=== PATIENT | female | born 1980 | race Caucasian/White ===

== ENCOUNTER 2017-01-14 14:34 | Emergency (ER) | payer OTHER ==
[2017-01-14 15:09] LABS: Hematocrit 41.1 % (37.0-47.0); Hemoglobin 14.4 gm/dL (12.5-16.0); Mean Cell Volume 82.4 fl (78-100); Mean Corpuscular Hemoglobin 28.9 pg (27-31); Mean Platelet Volume 9.6 fl (6.0-9.5); Neutrophil # 8.6 K/mm3 (1.3-6.0); Neutrophil % 72.9 % (42-75.0); Platelet Count 254 K/mm3 (150-450); Red Blood Count 4.99 M/mm3 (4.2-5.4); Red Cell Distribution Width 13.2 % (11.5-14.0); White Blood Count 11.7 K/mm3 (4.0-10.5)
[2017-01-14 15:29] LABS: ALT 48 U/L (19-67); AST 22 U/L (0-48); Albumin * 3.7 gm/dl (3.4-5.0); Alkaline Phosphatase * 82 U/L (50-170); Amylase * 31 U/L (25-115); BUN/Creatinine Ratio 15.9 (9.0-21.6); Bilirubin, Total 0.3 mg/dL (0.0-1.1); Blood Urea Nitrogen 11 mg/dL (3-23); Ca. Corrected For Albumin 9.4 mg/dL (8.4-10.2); Calcium * 9.5 mg/dL (7.9-10.9); Carbon Dioxide 25.5 mmol/L (24-32.6); Chloride 105 mmol/L (97-106); Glucose * 114 mg/dL (70-110); Lipase 105 U/L (73-393); Potassium 3.5 mmol/L (3.4-4.6); Sodium 139 mmol/L (132-142); Troponin I Less than 0.017 ng/ml (0.00-0.10)
[2017-01-14 15:38] LABS: Urine Bilirubin Negative (NEGATIVE); Urine Blood Negative /ul (NEGATIVE); Urine Ketone Negative (NEGATIVE); Urine Nitrite Negative (NEGATIVE); Urine Protein Negative (NEGATIVE); Urine Urobilinogen Normal (NORMAL)
--- NOTE | 2017-01-14 15:44 | ERNOTE ---
Abdominal HPI - General Chief Complaint: Abdominal Pain Time Seen by Provider: 01/14/17 14:55 Source: patient Exam Limitations: no limitations - Immun/Allergies/Home Medications Immunizatons: IMMUNIZATION HX Immunizations Up to Date Yes History of Influenza Vaccine No Hx Pneumococcal Vaccination No Allergies/Adverse Reactions: Allergies peanut Allergy (Verified 01/14/17 14:48) Anaphylaxis shellfish derived Allergy (Verified 01/14/17 14:48) Anaphylaxis Home Medications: HOME MEDICATIONS Losartan/Hydrochlorothiazide [Hyzaar 50-12.5 Tablet] 1 each PO DAILY 05/09/15 [ Last Taken Unknown] Metoprolol Succinate [Toprol Xl] 50 mg PO DAILY #30 tab 05/09/15 [Last Taken Unknown] Dicyclomine HCl [Bentyl] 20 mg PO TID #30 tablet 01/14/17 [Last Taken Unknown] Famotidine [Pepcid] 20 mg PO BID #30 tab 01/14/17 [Last Taken Unknown] - History of Present Illness Narrative: Patient presents with pain in the left lateral chest as well as the left upper quadrant of the abdomen. She complains of shortness of breath and feels as though her heart is racing. Onset of symptoms was approximately 2-1/2 weeks ago however it appears to be getting worse over the last few days. Timing: constant, getting worse Quality: moderate Activities at Onset: none Modifying Factors - (Worsens): Present: exercise Associated Symptoms: Present: shortness of breath Prior Abdominal Problems: Present: none Prior Treatment: Present: recently seen, treated by physician Review of Systems - Review of Systems Constitutional: Present: See HPI EYE: Present: no symptoms reported ENT: Present: no symptoms reported Respiratory: Present: shortness of breath, other - left lateral inferior chest wall pain Cardiology: Present: no symptoms reported Gastrointestinal/Abdominal: Present: no symptoms reported Genitourinary: Present: no symptoms reported Musculoskeletal: Present: no symptoms reported Skin: Present: no symptoms reported Neurological: Present: no symptoms reported Endocrine: Present: no symptoms reported Hematologic/Lymphatic: Present: no symptoms reported Psych: Present: no symptoms reported - Patient's Past Medical History Patient History - Medical: Other Patient History - Cardiac/Respiratory: Hypertension Patient History - Cancer: No Hx of Cancer Patient History - Surgical Procedures: Cholecystectomy, , Tubal Ligation Patient History - Other: None LMP (females 10-50): last week - Social History Living Situations: home Psych History: No pertinent hx - Immunizations Immunizations Up to Date: Yes Hx Pneumococcal Vaccination: No History of Influenza Vaccine: No Physical Exam - Physical Exam General Appearance: Present: wd/wn, alert, moderate distress Eye Exam: Normal inspection: bilateral, PERRL: bilateral Ears, Nose, Throat: Present: normal ENT inspection, H, normal pharynx Neck: Present: normal inspection, nontender Respiratory: Present: normal breath sounds, no accessory muscle use, chest nontender, lungs clear Cardiovascular/Chest: Present: no murmur, normal peripheral pulses, tachycardia Gastrointestinal/Abdominal: Present: normal bowel sounds, nontender, nondistended, soft, no organomegaly Rectal Exam: Present: deferred Back Exam: Present: normal inspection, normal range of motion Extremity Exam: Present: normal inspection, non-tender, no edema, normal range of motion Neurological Exam: Present: alert, oriented, normal mood/affect Skin Exam: Present: normal color, warm/dry Lymphatic Exam: Present: no adenopathy ED Progress - Results and Orders Patient's Lab Results:: I have reviewed the patient's lab results. - Vital Signs Patient's Vital Signs:: I have reviewed the patient's vital signs. Vital Signs: Vital Signs 01/14/17 14:44 Temperature 37.1 C Pulse Rate 123 H Respiratory 16 Rate Blood Pressure 132/26 O2 Sat by Pulse 95 Oximetry - CT/Ultrasound CT/Ultrasound Narrative: CT of the chest abdomen and pelvis were reviewed and discussed with the patient. Unclear etiology for the pain that the patient is having however we will have to consider possible adhesions perhaps some form of colitis or ulcerative colitis although this is not revealed on the CT and possible gastritis. Patient be started on Pepcid and Bentyl and she will discuss the next step and possible gastroenterology referral with Dr. Tran. - Progress/Reassessment Chief Complaint: Abdominal Pain Plan - Plan Plan: Unclear etiology for the pain that the patient is having however we will have to consider possible adhesions perhaps some form of colitis or ulcerative colitis although this is not revealed on the CT and possible gastritis. Patient be started on Pepcid and Bentyl and she will discuss the next step and possible gastroenterology referral with Dr. Tran. Departure - Departure Clinical Impression: Abdominal pain Qualifiers: Abdominal location: left upper quadrant Qualified Code(s): R10.12 - Left upper quadrant pain Disposition: Home self-care Condition: Good Instructions: Adhesions, [id number], Irritable Bowel Syndrome, Adult Referrals: Jered Tran MD [Primary Care Provider] - Prescriptions: Dicyclomine HCl [Bentyl] 20 mg PO TID #30 tablet Famotidine [Pepcid] 20 mg PO BID #30 tab
[2017-01-14] MEDS ORDERED: ORPHENADRINE CITRATE 30 MG/ML VIAL IM ONE (15:47)
[2017-01-14] MEDS ORDERED: KETOROLAC TROMETHAMINE 60 MG/2 ML VIAL IM ONE (15:47)
[2017-01-14 15:55] LABS: Urine Appearance Clear; Urine Bacteria 1+; Urine Color Yellow; Urine RBC None Seen /hpf (0-5); Urine WBC None Seen /hpf (0-5)
[2017-01-14] MEDS ORDERED: DIATRIZOATE MEGLU/DIATRIZO SOD 30 ML BTL ONE (16:16)
[2017-01-14] MEDS ORDERED: NORMAL SALINE 1,000 ML IV ONE (16:56)
[2017-01-14] MEDS ORDERED: ONDANSETRON HCL/PF 2 MG/ML VIAL IV ONE (16:56)
[2017-01-14] MEDS ORDERED: MORPHINE SULFATE 4 MG/ML SYRG IV ONE (16:56)
[2017-01-14] MEDS ORDERED: MORPHINE SULFATE 4 MG/ML SYRG ONE (16:56)
[2017-01-14] MEDS ORDERED: ONDANSETRON HCL/PF 2 MG/ML VIAL ONE (16:56)
[2017-01-14 19:25] VITALS: BP 135/91
== END 2017-01-14 19:40 | disposition home or self-care (01) ==
LOC: ER 14:34
DX: R10.12 Left upper quadrant pain (principal)
CPT/HCPCS: 36415; 71260; 74177; 80053; 81001; 82150; 83690; 84484; 85025; 93005; 96374; 99283; J2405

== ENCOUNTER 2017-02-12 06:57 | Day surgery (SDC) | payer OTHER ==
[~2017-02-12 06:57] MED LIST: RINGERS SOLUTION,LACTATED 1,000 ML IV PRN
[2017-02-12] MEDS ORDERED: RINGERS SOLUTION,LACTATED 1,000 ML IV ONE (07:30)
[2017-02-12] MEDS ORDERED: RINGERS SOLUTION,LACTATED 1,000 ML IV PRN (08:32)
[2017-02-12 09:36] VITALS: BP 126/74
--- NOTE | 2017-02-12 12:50 | OR ---
Operative Report - Dictated Report Narrative: Operative Report Date of operation: 02/12/2017 Preoperative diagnosis: Left upper quadrant pain. GERD symptoms despite medication. No prior colon studies. Postoperative diagnosis: Hiatal hernia with inflammation and gastropathy ( pathology and CLOtest pending). 2 mm rectal polyp otherwise normal colonoscopy to the cecum. Operation: EGD with biopsies. Colonoscopy with random biopsies and hot biopsy forceps polypectomy in the rectum. Surgeon: Dr Romero Anesthesia: JASON MALDONADO CRNA Indications for procedure: Patient is a 36-year-old female referred by Dr. Tran. The patient has a 1-1/2 month history of left upper quadrant pain after eating. She has had no previous dedicated colon studies. Stool cultures were negative for pathogens and O and P is negative Findings: Evidence of underlying obstructive sleep apnea. Hiatal hernia with inflammation at the GE junction. Pangastric erythema/gastropathy (pathology CLOtest pending) normal duodenum (biopsy pending). 2 mm hyperplastic appearing rectal polyp. Normal colonoscopy to the cecum (random biopsies pending). Patient discomfort on negotiating of the splenic flexure. Narrative of procedure: The patient was identified preoperatively, and prior to the administration of anesthetic a multidisciplinary timeout was observed EGD: With the patient in the recumbent position, a bite-block was placed, intravenous sedation was administered, and the patient's eyes covered with a towel. The flexible fiberoptic gastroscope was advanced into the posterior pharynx which appeared normal. The supraglottic larynx appeared normal. The cords appeared normal, moved well, and opposed in the midline. Visualization was aided with a jaw thrust maneuver, as the patient didn't evidence desaturation with sedation compatible with sleep apnea. The scope was advanced under direct vision into the proximal esophagus which appeared normal. The esophagus appeared freely distensible with normal mucosa. The esophageal mucosa appeared normal down to the gastroesophageal junction which was sharp and mildly inflamed. The GE junction appeared normally distensible. There was a small sliding hiatal hernia. Proper The scope was advanced into the stomach which was insufflated with air. Immediately apparent was mild ward gastric erythema but no souleymane ulcerations or neoplastic lesions were appreciated including a retroflexed view of the gastric fundus which also demonstrated small sliding hiatal hernia. The scope was redirected toward the pylorus. The pylorus appeared patent. The scope was advanced into the duodenal bulb which appeared normal. The scope was advanced further to the horizontal portion of the duodenum which appeared normal, specifically the villous architecture appeared well preserved and clear bile was present. A biopsy of technology sales representative duodenal mucosa was obtained and submitted to pathology. The biopsy site appeared hemostatic. The scope was slowly withdrawn through the duodenal bulb with confirmation that no active ulcer was present. The scope was withdrawn into the stomach and technology sales representative biopsies of gastric mucosa obtained for CLOtest and pathology. The biopsy sites were seen to be hemostatic. The insufflated air was removed from the stomach, the scope withdrawn to above the GE junction which was biopsied. The site appeared to be hemostatic. The scope was withdrawn from the patient, and this portion of the procedure terminated. COLONOSCOPY: The patient was then placed in the left lateral position, and the perineum was inspected. There was no evidence of pilonidal disease or skin breakdown. The external appearance of the anus was normal. Sphincter tone was good. The flexible fiberoptic colonoscope was inserted into the rectum which was insufflated with air. There was a 2 mm hyperplastic appearing rectal polyp. This was biopsied and thoroughly destroyed with electrocautery. The same seen to be complete and hemostatic. The rectal mucosa and submucosal vascular pattern appeared otherwise normal, the prep was seen to be complete. The scope was advanced through the sigmoid colon, up the descending colon, and around the splenic flexure where the triangular haustral architecture of the transverse colon was seen. The patient didn't evidence discomfort on negotiating of the splenic flexure. The scope was advanced across the transverse colon, around the hepatic flexure to the cecum, where the confluence of tenia and the ileocecal valve were identified. The mucosa at this level appeared normal. The scope was then slowly withdrawn in a circular fashion so that all aspects of colonic mucosa were inspected. The colon was normal in course and caliber. The haustral architecture appeared well preserved throughout with no evidence of external compression. The mucosa and submucosal vascular pattern appeared normal, specifically there was no gross evidence to suggest colitis or inflammatory bowel disease and no AV malformations were seen. Insurance Operations Rep random biopsies were obtained including a biopsy of rectal mucosa. The biopsy sites were seen to be hemostatic. No diverticulosis was demonstrated. No adenomatous appearing polyps were encountered. The scope was gradually withdrawn to the level of the rectum. As much insufflated air as possible was removed. The scope was withdrawn from the patient and the procedure terminated. The patient tolerated the anesthetic and procedure well without complication and was transferred back to the ambulatory surgery area awake and in stable condition. The patient remained stable throughout a period of postoperative observation. She reported some abdominal discomfort in the left upper quadrant abdominal discomfort, however was able to tolerate by mouth intake, and was up without assistance. I shared the operative findings with the patient and she was given copies of the photographs which appear in the medical record. She was discharged home with instructions not to engage in hazardous activity today, but may resume normal activity tomorrow, and advance diet as tolerated. She is to continue those medications as listed in the history and physical exam. I made arrangements to contact her with the biopsy reports and will make additional recommendations for treatment and follow-up based upon those results. The findings of desaturation with sedation and possible underlying sleep apnea were discussed with the patient and her by the sanitation worker hosing machinery. Reviewed and electronically signed
== END 2017-02-12 06:58 | disposition home or self-care (01) ==
LOC: AMB 06:57
PROVIDERS: ATTEND Surgery
PROC: 0DB48ZX Excision of Esophagogastric Junction, Via Natural or Artificial Opening Endoscopic, Diagnostic (ICD-10-PCS; 2017-02-12)
PROC: 0DBE8ZX Excision of Large Intestine, Via Natural or Artificial Opening Endoscopic, Diagnostic (ICD-10-PCS; 2017-02-12)
PROC: 0DBP8ZX Excision of Rectum, Via Natural or Artificial Opening Endoscopic, Diagnostic (ICD-10-PCS; 2017-02-12)
PROC: 0DB98ZX Excision of Duodenum, Via Natural or Artificial Opening Endoscopic, Diagnostic (ICD-10-PCS; principal; 2017-02-12 08:00)
PROC: 0DB68ZX Excision of Stomach, Via Natural or Artificial Opening Endoscopic, Diagnostic (ICD-10-PCS; 2017-02-12 08:00)
DX: Z12.11 Encounter for screening for malignant neoplasm of colon (principal); K29.70 Gastritis, unspecified, without bleeding; K44.9 Diaphragmatic hernia without obstruction or gangrene; K21.0 Gastro-esophageal reflux disease with esophagitis; K62.1 Rectal polyp; I10 Essential (primary) hypertension; Z68.37 Body mass index [BMI] 37.0-37.9, adult

== ENCOUNTER 2017-03-19 08:22 | Emergency (ER) | payer OTHER ==
[2017-03-19] MEDS ORDERED: ACETAMINOPHEN 325 MG TABLET PO ONE (09:00)
[2017-03-19] MEDS ORDERED: ACETAMINOPHEN 325 MG TABLET ONE ×2 (09:01→09:04)
--- NOTE | 2017-03-19 09:04 | ERNOTE ---
Trauma/Assault HPI - General Stated Complaint: LEG INJURY Time Seen by Provider: 03/19/17 08:49 Source: patient Exam Limitations: no limitations - Immun/Allergies/Home Medications Immunizations: IMMUNIZATION HX Immunizations Up to Date Yes History of Influenza Vaccine No Hx Pneumococcal Vaccination No Allergies/Adverse Reactions: Allergies peanut Allergy (Severe, Verified 03/19/17 08:34) Anaphylaxis shellfish derived Allergy (Severe, Verified 03/19/17 08:34) Anaphylaxis Home Medications: HOME MEDICATIONS EPINEPHrine [Epipen 2-Jose Miguel] 0.3 mg IM ONCE PRN 02/04/17 [Last Taken Unknown] Losartan/Hydrochlorothiazide [Hyzaar 50-12.5 Tablet] 1 each PO DAILY 02/12/17 [ Last Taken Unknown] - History of Present Illness Date (Duration): 03/19/17 Time (Timing): 16:00 Narrative: Yesterday afternoon patient tripped wearing heals and fell forward on on knees, denies any head injury. She was able to get up and ambulate, but still has pain in her right lower extremity, mainly in the lateral thigh and posterior upper calf, her right first toe hurt till she 'popped it'. Pain Location: Reports: lower extremity Method of Injury: Reports: fall Modifying Factors - (Improves): Reports: pain medication, rest Modifying Factors - (Worsens): Reports: movement Loss of Consciousness: Reports: no loss of consciousness Associated Symptoms - Trauma: Reports: denies symptoms Review of Systems - Review of Systems Constitutional: Present: recent illness - URI symptoms. Absent: fever EYE: Absent: vision changes ENT: Present: nose congestion. Absent: ear pain, sore throat Respiratory: Absent: shortness of breath, cough Cardiology: Absent: chest pain - Patient's Past Medical History Patient History - Medical: Kidney stone, Other Patient History - Cardiac/Respiratory: Hypertension Patient History - Cancer: No Hx of Cancer Patient History - Surgical Procedures: Cholecystectomy, , Tubal Ligation Patient History - Other: None LMP (Calendar): 02/02/17 - Family History Mother Family History - Medical: Diabetes Type 2 Family History - Cardiac/Respiratory: No pertinent hx Family History - Cancer: No pertinent family hx Sister Family History - Medical: No pertinent hx Family History - Cardiac/Respiratory: No pertinent hx Family History - Cancer: Breast, Melanoma Grandmother-Maternal Family History - Medical: , Diabetes Type 2 Family History - Cardiac/Respiratory: Myocardial Infarction Family History - Cancer: Other - Social History Living Situations: spouse Abuse History: No History of abuse Psych History: No pertinent hx Smoking Status: Never smoker Alcohol Use: occasionally Drug Use: none - Immunizations Immunizations Up to Date: Yes Hx Pneumococcal Vaccination: No History of Influenza Vaccine: No Physical Exam - Physical Exam General Appearance: Present: wd/wn, alert, no apparent distress Head Exam: Present: normal inspection, no evidence of injury Eye Exam: Normal inspection: bilateral Neck: Present: normal inspection, supple, full range of motion, tender lateral - right. Absent: tender posterior midline Respiratory: Present: no respiratory distress, normal breath sounds, no accessory muscle use, chest nontender, lungs clear Cardiovascular/Chest: Present: regular rate, rhythm, no murmur Gastrointestinal/Abdominal: Present: normal bowel sounds, nontender, nondistended Back Exam: Present: normal inspection, no CVA tenderness, no vertebral tenderness Extremity Exam: Present: normal except - - abrasion over right patella, no swelling, no echymosis, no deformity, normal ROM, muscle tenderness over right lateral thigh and proximal posterior lower leg Neurological Exam: Present: alert, oriented, normal mood/affect, no motor/ sensory deficits Skin Exam: Present: normal color, warm/dry ED Progress - Vital Signs Patient's Vital Signs:: I have reviewed the patient's vital signs. Vital Signs: Vital Signs 03/19/17 08:22 Temperature 36.8 C Pulse Rate 90 Respiratory 12 Rate Blood Pressure 147/93 O2 Sat by Pulse 100 Oximetry - X-Ray X-Ray #1 X-Ray: femur - no bony abnormality Interpretation: Reviewed by me X-Ray #2 X-Ray: foot - no bony abnormality Interpretation: Reviewed by me - Progress/Reassessment Chief Complaint: Fall Progress Note-Subjective: 03/19/17 09:53 discussed xray results pain better after tylenol Departure Clinical Impression: Muscle strain of right lower extremity Qualifiers: Encounter type: initial encounter Qualified Code(s): S86.911A - Strain of unspecified muscle(s) and tendon(s) at lower leg level, right leg, initial encounter - Departure Disposition: Home self-care Condition: Good Instructions: Muscle Strain, [id number], Form - Excuse from Work, School, or Physical Activity Referrals: Jered Tran MD [Primary Care Provider] -
[2017-03-19 10:10] VITALS: BP 148/95
== END 2017-03-19 10:00 | disposition home or self-care (01) ==
LOC: ER 08:22
DX: S86.911A Strain of unspecified muscle(s) and tendon(s) at lower leg level, right leg, initial encounter (principal); W01.0XXA Fall on same level from slipping, tripping and stumbling without subsequent striking against object, initial encounter; Y93.9 Activity, unspecified; Y92.9 Unspecified place or not applicable; I10 Essential (primary) hypertension

== ENCOUNTER 2017-05-06 09:37 | Emergency (ER) | payer OTHER ==
[2017-05-06] MEDS ORDERED: KETOROLAC TROMETHAMINE 60 MG/2 ML VIAL IM ONE ×2 (10:16→10:39)
--- NOTE | 2017-05-06 10:41 | ERNOTE ---
Trauma/Assault HPI - Narrative Date of Service: 05/06/17 - General Stated Complaint: FALL Time Seen by Provider: 05/06/17 09:58 Source: patient Exam Limitations: no limitations - Immun/Allergies/Home Medications Immunizations: IMMUNIZATION HX Immunizations Up to Date Yes History of Influenza Vaccine No Hx Pneumococcal Vaccination No Allergies/Adverse Reactions: Allergies cephalexin Allergy (Severe, Verified 05/06/17 09:54) Anaphylaxis peanut Allergy (Severe, Verified 03/19/17 08:34) Anaphylaxis shellfish derived Allergy (Severe, Verified 03/19/17 08:34) Anaphylaxis Home Medications: HOME MEDICATIONS EPINEPHrine [Epipen 2-Jose Miguel] 0.3 mg IM ONCE PRN 02/04/17 [Last Taken Unknown] Losartan/Hydrochlorothiazide [Hyzaar 50-12.5 Tablet] 1 each PO DAILY 02/12/17 [ Last Taken Unknown] Cyclobenzaprine HCl [Flexeril] 10 mg PO TID PRN #30 tab 05/06/17 [Last Taken Unknown] Naproxen [Naprosyn] 500 mg PO BID PRN #60 tab 05/06/17 [Last Taken Unknown] - History of Present Illness Narrative: Pt. comes in with c/o L knee and R ankle pain after she tripped over a curb on her way into work just prior to arrival. Pt. denies any SOB, CP, NVD, fever, recent illness, or alleviating factors despite taking Tylenol for pain. Pt. states that ambulating exacerbates the pain. Review of Systems - Review of Systems Constitutional: Present: no symptoms reported. Absent: recent illness, fever, chills, weakness, fatigue, malaise EYE: Present: no symptoms reported ENT: Present: no symptoms reported Respiratory: Present: no symptoms reported. Absent: shortness of breath, cough , wheezing Cardiology: Present: no symptoms reported. Absent: chest pain, palpitations, edema Gastrointestinal/Abdominal: Present: no symptoms reported Genitourinary: Present: no symptoms reported Musculoskeletal: Present: joint pain - L knee, R ankle. Absent: back pain Neurological: Present: numbness - LLE, tingling - LLE. Absent: headache, dizziness/light-headedness Hematologic/Lymphatic: Present: no symptoms reported. Absent: easy bruising, easy bleeding All Other Systems: All systems neg except as marked - Patient's Past Medical History Patient History - Medical: Kidney stone Patient History - Cardiac/Respiratory: Hypertension Patient History - Cancer: No Hx of Cancer Patient History - Surgical Procedures: Cholecystectomy, , Tubal Ligation Patient History - Other: None LMP (females 10-50): last week LMP (Calendar): 04/21/17 - Family History Mother Family History - Medical: Diabetes Type 2 Family History - Cardiac/Respiratory: No pertinent hx Family History - Cancer: No pertinent family hx Sister Family History - Medical: No pertinent hx Family History - Cardiac/Respiratory: No pertinent hx Family History - Cancer: Breast, Melanoma Grandmother-Maternal Family History - Medical: , Diabetes Type 2 Family History - Cardiac/Respiratory: Myocardial Infarction Family History - Cancer: Other - Social History Living Situations: home Abuse History: No History of abuse Psych History: No pertinent hx Smoking Status: Never smoker Alcohol Use: rarely Drug Use: none - Immunizations Immunizations Up to Date: Yes Hx Pneumococcal Vaccination: No History of Influenza Vaccine: No Physical Exam - Physical Exam General Appearance: Present: wd/wn, alert, no apparent distress Head Exam: Present: normal inspection, no evidence of injury Eye Exam: Normal inspection: bilateral Respiratory: Present: no respiratory distress, normal breath sounds, no accessory muscle use, chest nontender, lungs clear Cardiovascular/Chest: Present: regular rate, rhythm, no murmur, normal peripheral pulses Back Exam: Present: normal inspection Extremity Exam: Present: normal range of motion, no edema, bony tenderness - R Lateral foot and L patella. Absent: joint swelling Neurological Exam: Present: alert, oriented, normal mood/affect, no motor/ sensory deficits, other - pt. is able to feel light touch and sharp. Absent: motor weakness Skin Exam: Present: normal color, warm/dry. Absent: pallor, skin rash - C-Spine cleared by: Neg history & exam ED Progress - Date and Time Seen: Date and Time: 05/06/17 10:52 Pt. is unable to stand without a great deal of pain and assistance so her mobility is going to be limited despite not breaking any bone so will recommend that she get a wheelchair for mobility for at least a week and if not improved in a week she needs to follow up with ortho. - Vital Signs Patient's Vital Signs:: I have reviewed the patient's vital signs. Vital Signs: Vital Signs 05/06/17 09:57 Temperature 36.6 C Pulse Rate 98 Respiratory 20 Rate Blood Pressure 133/87 O2 Sat by Pulse 97 Oximetry - X-Ray X-Ray #1 X-Ray: knee Interpretation: Reviewed by me X-ray Comments: no acute ossious abnormality X-Ray #2 X-Ray: ankle Interpretation: Reviewed by me X-ray Comments: No acute ossious abnormality - Progress/Reassessment Chief Complaint: Fall Departure Clinical Impression: Right ankle sprain Qualifiers: Encounter type: initial encounter Involved ligament of ankle: calcaneofibular ligament Qualified Code(s): S93.411A - Sprain of calcaneofibular ligament of right ankle, initial encounter Left knee sprain Qualifiers: Encounter type: initial encounter Involved ligament of knee: unspecified cruciate ligament Qualified Code(s): S83.502A - Sprain of unspecified cruciate ligament of left knee, initial encounter - Departure Disposition: Home self-care Condition: Good Instructions: RICE for Routine Care of Injuries, [id number], Ankle Sprain, Knee Pain Additional Instructions: Please follow up with orthopedics provider in a week if not improved until then you need to use a wheelchair for mobility. Referrals: Jered Tran MD [Primary Care Provider] - Prescriptions: Cyclobenzaprine HCl [Flexeril] 10 mg PO TID PRN #30 tab PRN Reason: MUSCLE SPASMS Naproxen [Naprosyn] 500 mg PO BID PRN #60 tab PRN Reason: Pain
[2017-05-06 18:54] VITALS: BP 139/90
== END 2017-05-06 11:20 | disposition home or self-care (01) ==
LOC: ER 09:37
DX: S93.411A Sprain of calcaneofibular ligament of right ankle, initial encounter (principal); S83.502A Sprain of unspecified cruciate ligament of left knee, initial encounter; Z87.442 Personal history of urinary calculi; I10 Essential (primary) hypertension; W10.1XXA Fall (on)(from) sidewalk curb, initial encounter; Y93.01 Activity, walking, marching and hiking; Y92.9 Unspecified place or not applicable; Y99.0 Civilian activity done for income or pay